=== PATIENT | female | born 1975 | race Caucasian/White ===

== ENCOUNTER 2017-03-21 10:57 | Emergency (ER) | payer BC ==
[2016-04-17 06:09] VITALS: BMI 44.0
[~2017-03-21 10:57] MED LIST: AMBIEN5 MG PO; BUPROPION HCL100 M1 PO; EFFEXOR XR150 MG PO; K-TAB10 MEQ PO; LASIX20 MG PO; MOTRIN600 MG PO; NORCO 5/325 TAB1 TA1 PO; PREVACID15 MG PO; PREVACID30 MG PO; XARELTO20 MG PO; ZESTORETIC 10/11 TAB PO; ZOCOR10 MG PO
[2017-03-21 11:54] LABS: APTT 39.2 SECONDS (22.8-39.4); INR 1.71 (0.85-1.17)
[2017-03-21 11:57] LABS: ANION GAP 15.2 mmol/L (8-16); CARBON DIOXIDE 27.4 mmol/L (21.0-32.0); CREATININE - SERUM 0.9 mg/dL (0.6-1.3); POTASSIUM - SERUM 3.6 mmol/L (3.5-5.1)
[2017-03-21 12:01] LABS: HCG SERUM NEGATIVE (NEGATIVE)
[2017-03-21 12:39] LABS: BASOPHILS 0.2 % (0-2); EOSINOPHILS 0.8 % (0-7); HEMATOCRIT 42.9 % (36.0-48.0); HEMOGLOBIN 14.7 g/dL (12-16); IMMATURE GRANULOCYTES 0.1 % (0-5); LYMPHOCYTES 21.6 % (15-50); MCH 31.7 pg (26.0-34.0); MCHC 34.3 g/dL (31.0-37.0); MCV 92.5 fL (80.0-100.0); MEAN PLATELET VOLUME 11.4 fL (7.4-10.4); MONOCYTES 7.9 % (2-11); NEUTROPHILS 69.4 % (40-80); PLATELET COUNT 264 10x3/uL (130-400); RBC 4.64 10x6/uL (4.00-5.40); RDW 13.6 % (11.5-14.5); WBC 8.6 10x3/uL (4.8-10.8)
[2017-03-21 13:07] LABS: APPEARANCE CLEAR (CLEAR); BACTERIA FEW /hpf (NONE SEEN); BILIRUBIN NEGATIVE (NEGATIVE); COLOR STRAW (YELLOW); EPITHELIAL CELLS RARE /hpf (0-5); GLUCOSE NEGATIVE (NEGATIVE); KETONE NEGATIVE (NEGATIVE); LEUKOCYTE ESTERASE TRACE (NEGATIVE); NITRITE NEGATIVE (NEGATIVE); PROTEIN NEGATIVE (NEGATIVE); RED CELLS - URINE 0-5 /hpf (0-5); SPECIFIC GRAVITY 1.015 (1.005-1.020); UROBILINOGEN NORMAL (NORMAL); WHITE CELLS - URINE RARE /hpf (0-5)
== END 2017-03-21 16:12 | disposition home or self-care (01) ==
LOC: D.ER 10:57
PROVIDERS: Emergency Medicine; Nurse Practitioner Acute Care
DX: N93.8 Other specified abnormal uterine and vaginal bleeding (principal); D68.51 Activated protein C resistance; R10.9 Unspecified abdominal pain

== ENCOUNTER 2017-03-26 05:42 | Day surgery (SDC) | payer BC ==
[2017-03-23 10:06] LABS: BASOPHILS 0.4 % (0-2); EOSINOPHILS 0.8 % (0-7); HEMATOCRIT 39.3 % (36.0-48.0); HEMOGLOBIN 13.4 g/dL (12-16); LYMPHOCYTES 30.1 % (15-50); MCH 31.3 pg (26.0-34.0); MCHC 34.1 g/dL (31.0-37.0); MCV 91.8 fL (80.0-100.0); MEAN PLATELET VOLUME 10.7 fL (7.4-10.4); NEUTROPHILS 60.7 % (40-80); PLATELET COUNT 246 10x3/uL (130-400); RBC 4.28 10x6/uL (4.00-5.40); RDW 13.5 % (11.5-14.5)
[2017-03-23 10:26] LABS: CALC OSMOLALITY 275 mosm/kg (275-300); CALCIUM 8.7 mg/dL (8.5-10.1); CARBON DIOXIDE 26.8 mmol/L (21.0-32.0); CHLORIDE - SERUM 102 mmol/L (98-107); CREATININE - SERUM 0.7 mg/dL (0.6-1.3); GLUCOSE 112 mg/dL (74-106); POTASSIUM - SERUM 3.8 mmol/L (3.5-5.1); SODIUM 138 mmol/L (136-145); UREA NITROGEN 11 mg/dL (7-18); eGFR NON AFRICAN AMERICAN > 90 mL/min (90-120)
[2017-03-23 10:44] LABS: WBC 5.2 10x3/uL (4.8-10.8)
[~2017-03-26] VITALS: Ht 157.5 cm; Wt 117.9 kg
[2017-03-26 06:50] VITALS: BP 123/66; Ht 157.5 cm; Wt 117.9 kg
--- NOTE | 2017-03-26 08:44 | NUR ---
THE PATIENT REPORTS A PAIN OF 5 PRIOR TO HER PROCEEDURE. AND REPORTS ITS TOLERABLE NOW. PT IS SLEEPING AND APPEARS TO REST VERY COMFORTABLE
== END 2017-03-26 10:22 | disposition home or self-care (01) ==
LOC: D.OPS 05:42
PROVIDERS: Obstetrics & Gynecology
DX: N92.0 Excessive and frequent menstruation with regular cycle (principal); Z86.718 Personal history of other venous thrombosis and embolism; Z79.01 Long term (current) use of anticoagulants; F41.8 Other specified anxiety disorders; K21.9 Gastro-esophageal reflux disease without esophagitis; Z01.810 Encounter for preprocedural cardiovascular examination; Z01.811 Encounter for preprocedural respiratory examination; Z01.812 Encounter for preprocedural laboratory examination

== ENCOUNTER → 2019-05-05 18:39 | Outpatient (CLI) | payer BC ==
[2017-03-26 06:50] VITALS: BMI 47.7
== END | disposition home or self-care (01) ==
LOC: D.LABREF 18:39
PROVIDERS: ATTEND Urology
DX: R31.9 Hematuria, unspecified (principal)

== ENCOUNTER → 2019-05-13 09:27 | Outpatient (CLI) | payer BC ==
[2017-03-26 06:50] VITALS: BMI 47.7
[2019-05-13 10:08] LABS: APPEARANCE HAZY (CLEAR); BACTERIA FEW /hpf (NONE SEEN); BILIRUBIN NEGATIVE (NEGATIVE); COLOR YELLOW (YELLOW); EPITHELIAL CELLS 0-5 /hpf (0-5); GLUCOSE NEGATIVE (NEGATIVE); KETONE NEGATIVE (NEGATIVE); MUCUS <1+ /lpf (NONE SEEN); NITRITE NEGATIVE (NEGATIVE); PROTEIN NEGATIVE (NEGATIVE); RED CELLS - URINE RARE /hpf (0-5); UROBILINOGEN NORMAL (NORMAL); WHITE CELLS - URINE 0-5 /hpf (0-5)
[2019-05-13 10:09] LABS: AMORPHOUS SEDIMENT >1+ /lpf (NONE SEEN); GRANULAR CAST RARE /lpf (NONE SEEN); HYALINE CAST RARE /lpf (NONE SEEN)
== END | disposition home or self-care (01) ==
LOC: D.LABREF 09:27
PROVIDERS: ATTEND Urology
DX: Z00.01 Encounter for general adult medical examination with abnormal findings (principal)

== ENCOUNTER → 2019-05-21 18:18 | Outpatient (CLI) | payer BC ==
[2017-03-26 06:50] VITALS: BMI 47.7
== END | disposition home or self-care (01) ==
LOC: D.LABREF 18:18
PROVIDERS: ATTEND Urology
DX: R31.9 Hematuria, unspecified (principal)

== ENCOUNTER 2019-06-05 07:17 | Day surgery (SDC) | payer BC ==
[~2019-06-05] VITALS: Ht 157.5 cm; Wt 115.7 kg
[2019-06-05 07:39] LABS: HEMATOCRIT 39.8 % (36.0-48.0); HEMOGLOBIN 13.3 g/dL (12-16); MCH 31.1 pg (26.0-34.0); MCHC 33.4 g/dL (31.0-37.0); MEAN PLATELET VOLUME 9.9 fL (7.4-10.4); RBC 4.28 10x6/uL (4.00-5.40); RDW 13.2 % (11.5-14.5); WBC 4.8 10x3/uL (4.8-10.8)
[2019-06-05 07:50] LABS: APTT 33.3 SECONDS (22.8-39.4); INR 0.91 (0.85-1.17); PROTIME 11.8 SECONDS (11.6-15.0)
[2019-06-05 07:51] LABS: CALC OSMOLALITY 277 mosm/kg (275-300); CHLORIDE - SERUM 102 mmol/L (98-107); CREATININE - SERUM 0.8 mg/dL (0.6-1.3); GLUCOSE 101 mg/dL (74-106); POTASSIUM - SERUM 3.9 mmol/L (3.5-5.1); SODIUM 139 mmol/L (136-145); UREA NITROGEN 12 mg/dL (7-18); eGFR NON AFRICAN AMERICAN 82 mL/min (90-120)
[2019-06-05] MEDS ORDERED: BUSPAR 15 MG TA15 MG PO (08:15)
[2019-06-05] MEDS ORDERED: TRAZODONE HCL150 MG PO (08:16)
[2019-06-05] MEDS ORDERED: LOVENOX120 MG/0.8 SC (08:16)
[2019-06-05] MEDS ORDERED: ULTRAM50 MG PO (08:17)
[2019-06-05 08:31] VITALS: BP 94/67; Ht 157.5 cm; Wt 115.7 kg
--- NOTE | 2019-06-05 13:16 | NUR ---
MEETS ANESTHESIA DISCHARGE CRITERIA
--- NOTE | 2019-06-05 14:42 | OP ---
PATIENT NAME: RADHA BELTRAN MEDICAL RECORD: [id number] :75 LOCATION:[facility] ADMISSION DATE: SURGEON: STEPHANIE PADILLA MD DATE OF OPERATION: 06/05/2019 SURGEON: Stephanie Padilla MD ANESTHESIA: General anesthesia by Josue Lindo CRNA. DIAGNOSES: Interstitial cystitis, female stress urinary incontinence. PROCEDURES: Cystoscopy, hydrodistention, and intravesical Rimso installation. Pubovaginal sling with [employer] Obtryx II mesh. FINDINGS: On cystoscopy, no bladder injury, no bladder tumors. Single ureteral orifices bilaterally with diffuse bladder inflammation. ESTIMATED BLOOD LOSS: 60 mL. CLINICAL HISTORY: This is a 44-year-old female with microscopic hematuria and persistent symptoms of urinary tract infections. She had a CT scan of the abdomen and pelvis, which was normal. Her urine culture by straight catheterization showed no growth. She still has symptoms of urinary frequency, urgency, suprapubic and vaginal pain. She has stress urinary incontinence also. When we examined her, she had urethral hypermobility with stress urinary incontinence with coughing. She had a positive Rajat test. There was no significant cystocele. She comes today to have treatment of the interstitial cystitis with hydrodistention and intravesical Rimso. She also wants to have a pubovaginal sling. Risk of mesh use including infection, graft erosion, graft extrusion, pain and dyspareunia were explained. Adverse outcomes include persistence stress urinary incontinence, urge urinary incontinence exacerbation, urinary retention and/or incomplete bladder emptying were also explained. SHE IS ALLERGIC TO IBUPROFEN. 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 DESCRIPTION OF PROCEDURE: The patient was given induction of general anesthesia in supine position. She was then placed in the lithotomy position and shaved and prepped. She was draped. A 16-Kazakh Haddad catheter was placed into the bladder. The posterior vaginal wall was held down with a weighted speculum. The labia majora were retracted laterally using #1 nylon sutures anchored to the medial thighs. The anterior vaginal wall was infiltrated in the region of the urethra using Pitressin solution. Twenty units of vasopressin was dissolved in 100 mL of injectable normal saline and this was infiltrated in the periurethral and suburethral space. A 1-cm incision in the vertical midline was made right over the urethra. Dissection was then carried out using Metzenbaum scissors. Laterally, we perforated through the pubocervical fascia. The space over the obturator membrane on each side was cleared. We then landmarked for placement of the graft in a transobturator fashion. The entry point is inferior to the insertion of the adductor longus muscle onto the descending pubic ramus. A janett was made here with a marking pen on each side. A stab incision was made on each side with a #15 blade. The trocars were then passed through this incision, deep to the descending pubic ramus and then going transobturator through the apex through the anterior apex of the obturator membrane. The tip of the needle then exited the vaginal dissection space. Here the graft end was attached to the needle tip and then the needles were withdrawn to result in transobturator passage of the graft. There is a tab on the midpoint of the graft, which was OPERATIVE REPORT [id number] RADHA BELTRAN placed under the mid urethra. At this point, the Haddad catheter was removed and we performed cystoscopy. We used a 17-Kazakh cystoscope. Findings as outlined above. There is no bladder injury. There is no urethral injury. The bladder was filled to about 600 mL with the normal saline. The bladder was found to be quite diffusely inflamed. Afterwards, the cystoscope was removed, leaving the saline in the bladder. By applying manual suprapubic pressure, I was able to get leakage of urine per the urethra. The midpoint tab on the graft was cut off entirely. The graft tension was gradually increased until quite severe suprapubic pressure was required in order to elicit some leakage of urine per the urethra. The legs were placed in the low lithotomy position while the graft tension was being adjusted. A hemostat was then placed between the graft and the urethra. This was to prevent an increase in graft tension during removal of the clear plastic sheath material on each side. The suture holding the sheath material was cut and the sheath on the sheaths pleural on both sides were removed simultaneously. The graft ends were cut off where they exited the inguinal skin incisions. The inguinal skin incisions were closed using simple interrupted 4-0 Vicryl sutures. The vaginal dissection space was irrigated out using normal saline. The vaginal mucosa was closed using running 4-0 Monocryl. A red rubber catheter was then inserted into the bladder. The bladder was fully emptied. Then, through the lumen of the red rubber catheter, we instilled 50 mL of Rimso solution into the bladder. The catheter was removed, leaving the solution in the bladder. The patient will void this out after some time. Vaginal packing was placed into the vagina. This vaginal packing will be removed prior to the patient going home. I will see the patient in followup next week. TRANSINT:[id number] Voice Confirmation ID: [id number] DOCUMENT ID: [id number] STEPHANIE PADILLA MD at 1442 CC: [id number] DICTATION DATE: 06/05/19 1246 BINDER COVERSTITCH: 06/05/19 133[id number] [place] [address]
== END 2019-06-05 17:27 | disposition home or self-care (01) ==
LOC: D.OPS 07:17 → D.PAN 08:00 → D.OPS 09:45 → D.PAN 09:45 → D.OPS 10:00
PROVIDERS: Anesthesiology; ATTEND Urology
DX: N30.10 Interstitial cystitis (chronic) without hematuria (principal); N39.3 Stress incontinence (female) (male)

== ENCOUNTER → 2019-06-11 22:22 | Outpatient (CLI) | payer BC ==
[2019-06-05 08:31] VITALS: BMI 46.7
[~2019-06-11 22:22] MED LIST changes: +BUSPAR 15 MG TA15 MG PO; +LOVENOX120 MG/0.8 SC; +TRAZODONE HCL150 MG PO; +ULTRAM50 MG PO
== END | disposition home or self-care (01) ==
LOC: D.LABREF 22:22
PROVIDERS: ATTEND Urology
DX: R31.9 Hematuria, unspecified (principal); D72.819 Decreased white blood cell count, unspecified; Z98.890 Other specified postprocedural states

== ENCOUNTER → 2019-06-25 18:26 | Outpatient (CLI) | payer BC ==
[2019-06-05 08:31] VITALS: BMI 46.7
== END | disposition home or self-care (01) ==
LOC: D.LABREF 18:26
PROVIDERS: ATTEND Urology
DX: R82.90 Unspecified abnormal findings in urine (principal)

== ENCOUNTER → 2019-07-09 21:18 | Outpatient (CLI) | payer BC ==
[2019-06-05 08:31] VITALS: BMI 46.7
== END | disposition home or self-care (01) ==
LOC: D.LABREF 21:18
PROVIDERS: ATTEND Urology
DX: R31.9 Hematuria, unspecified (principal)

== ENCOUNTER 2020-04-23 15:20 | Emergency (ER) | payer OTHER ==
[~2020-04-23] VITALS: Ht 157.5 cm; Wt 109.1 kg
[2020-04-23 15:34] VITALS: Ht 157.5 cm; Wt 109.1 kg
[2020-04-23] MEDS ORDERED: HYDROCODON-ACE1 EAC7 PO (15:36)
[2020-04-23 15:59] LABS: BASOPHILS 0.3 % (0-2); BILIRUBIN NEGATIVE (NEGATIVE); EOSINOPHILS 1.2 % (0-7); HEMATOCRIT 40.3 % (36.0-48.0); HEMOGLOBIN 13.5 g/dL (12-16); IMMATURE GRANULOCYTES 0.1 % (0-5); KETONE NEGATIVE (NEGATIVE); LYMPHOCYTES 21.8 % (15-50); MCH 30.3 pg (26.0-34.0); MCHC 33.5 g/dL (31.0-37.0); MCV 90.6 fL (80.0-100.0); MONOCYTES 6.5 % (2-11); NEUTROPHILS 70.1 % (40-80); NITRITE NEGATIVE (NEGATIVE); PLATELET COUNT 279 10x3/uL (130-400); RBC 4.45 10x6/uL (4.00-5.40); UROBILINOGEN NORMAL (NORMAL); WBC 7.5 10x3/uL (4.8-10.8)
[2020-04-23 16:08] LABS: CALC OSMOLALITY 272 mosm/kg (275-300); CARBON DIOXIDE 32.2 mmol/L (21.0-32.0); CHLORIDE - SERUM 98 mmol/L (98-107); GLUCOSE 98 mg/dL (74-106); POTASSIUM - SERUM 3.1 mmol/L (3.5-5.1); SODIUM 137 mmol/L (136-145); UREA NITROGEN 10 mg/dL (7-18); eGFR NON AFRICAN AMERICAN 63 mL/min (90-120)
[2020-04-23 16:17] LABS: ALBUMIN 4.1 g/dL (3.4-5.0); ALKALINE PHOSPHATASE 131 U/L (30-120); ALT (SGPT) 28 U/L (10-68); AMYLASE - SERUM 26 U/L (25-115); BILIRUBIN - TOTAL 0.52 mg/dL (0.2-1.3); LIPASE 70 U/L (73-393); PROTEIN - SERUM 8.1 g/dL (6.4-8.2)
[2020-04-23 16:26] LABS: TROPONIN-I < 0.017 ng/mL (0.000-0.060)
[2020-04-23 19:07] LABS: HCG SERUM NEGATIVE (NEGATIVE)
[2020-04-23] MEDS ORDERED: ULTRAM50 MG PO (22:04)
[2020-04-24 00:49] VITALS: BP 129/86
== END 2020-04-23 23:12 | disposition home or self-care (01) ==
LOC: D.ER 15:20
PROVIDERS: Emergency Medicine; Family Medicine
DX: R10.9 Unspecified abdominal pain (principal); K21.9 Gastro-esophageal reflux disease without esophagitis